=== PATIENT | male | born 1970 | race Two or more races ===

== ENCOUNTER 2020-07-28 10:44 | Inpatient (IN) | payer OTHER ==
[~2020-07-28] VITALS: Ht 177.8 cm; Wt 90.7 kg
[2020-07-28] MEDS ORDERED: LOSARTAN POTASS50 MG (11:12)
[2020-07-28] MEDS ORDERED: JANUMET 50-1,01 EACH (11:12)
[2020-07-28] MEDS ORDERED: FARXIGA5 MG (11:13)
[2020-07-28] MEDS ORDERED: SIMVASTATIN5 MG (11:13)
[2020-08-10] MEDS ORDERED: PEPCID AC20 MG PO (11:58)
[2020-08-10] MEDS ORDERED: MELATONIN5 M2 PO (11:58)
[2020-08-10] MEDS ORDERED: ZINC SULFATE220 M2 PO (11:58)
[2020-08-10] MEDS ORDERED: INTESTINEX680 M1 PO (11:58)
[2020-08-10] MEDS ORDERED: VITAMIN D3125 MC2 PO (11:58)
[2020-08-10] MEDS ORDERED: LOSARTAN POTASS50 MG PO (11:58)
[2020-08-10] MEDS ORDERED: LANTUS SOL100 UNIT/1 SUBCUTANEO (11:58)
[2020-08-10] MEDS ORDERED: ADULT LOW DOSE81 M1 PO (11:58)
[2020-08-10] MEDS ORDERED: JANUMET 50-1,01 EACH PO (11:58)
[2020-08-10] MEDS ORDERED: SIMVASTATIN80 MG PO (11:58)
[2020-08-10] MEDS ORDERED: VITAMIN C500 M1 PO (11:58)
== END 2020-08-10 15:35 | disposition home or self-care (01) | DRG 637 ==
LOC: ER 10:44 → ICU-2 18:41 → MEDJ 07-31 13:04
PROVIDERS: ADMIT Internal Medicine; ATTEND Internal Medicine
PROC: 4A033R1 Measurement of Arterial Saturation, Peripheral, Percutaneous Approach (ICD-10-PCS; principal; 2020-07-28)
PROC: 8E0ZXY6 Isolation (ICD-10-PCS; 2020-07-28)
PROC: 4A12X4Z Monitoring of Cardiac Electrical Activity, External Approach (ICD-10-PCS; 2020-07-31)
PROC: 3E0F7SF Introduction of Other Gas into Respiratory Tract, Via Natural or Artificial Opening (ICD-10-PCS; 2020-08-01)
DX: E11.10 Type 2 diabetes mellitus with ketoacidosis without coma (principal); U07.1 COVID-19; J12.89 Other viral pneumonia; N17.8 Other acute kidney failure; Z79.4 Long term (current) use of insulin; E86.0 Dehydration; I10 Essential (primary) hypertension; Z91.14 Patient's other noncompliance with medication regimen; E55.9 Vitamin D deficiency, unspecified; R09.02 Hypoxemia

== ENCOUNTER 2022-02-15 16:20 | Emergency (ER) | payer OTHER ==
[~2022-02-15] VITALS: Ht 185.4 cm; Wt 104.3 kg
[~2022-02-15 16:20] MED LIST: ADULT LOW DOSE81 M1 PO; FARXIGA5 MG; INTESTINEX680 M1 PO; JANUMET 50-1,01 EACH; JANUMET 50-1,01 EACH PO; LANTUS SOL100 UNIT/1 SUBCUTANEO; LOSARTAN POTASS50 MG; LOSARTAN POTASS50 MG PO; MELATONIN5 M2 PO; PEPCID AC20 MG PO; SIMVASTATIN5 MG; SIMVASTATIN80 MG PO; VITAMIN C500 M1 PO; VITAMIN D3125 MC2 PO; ZINC SULFATE220 M2 PO
== END 2022-02-15 19:46 | disposition home or self-care (01) ==
LOC: ER 16:20
DX: R53.81 Other malaise (principal); Z20.822 Contact with and (suspected) exposure to COVID-19

== ENCOUNTER 2022-08-15 05:23 | Emergency (ER) | payer OTHER ==
[~2022-08-15] VITALS: Ht 185.4 cm; Wt 106.6 kg
[2022-08-15] MEDS ORDERED: GLIMEPIRIDE2 MG (05:30)
== END 2022-08-15 08:26 | disposition home or self-care (01) ==
LOC: ER 05:23
DX: R00.2 Palpitations (principal)

== ENCOUNTER → 2022-09-04 | Emergency (ER) | payer OTHER ==
[~2022-09-04] VITALS: Ht 185.4 cm; Wt 104.3 kg
[~2022-09-04] MED LIST changes: +GLIMEPIRIDE2 MG
== END | disposition home or self-care (01) ==
LOC: ER 14:59
DX: R00.2 Palpitations (principal); I10 Essential (primary) hypertension

== ENCOUNTER → 2023-08-20 | Emergency (ER) | payer OTHER | END | disposition left against medical advice (07) | LOC: ER 12:15 | DX: Z53.21 Procedure and treatment not carried out due to patient leaving prior to being seen by health care provider (principal) ==